=== PATIENT | male | born 1935 | race Caucasian/White ===

== ENCOUNTER 2017-05-16 11:29 | Day surgery (SDC) | payer MEDICARE ==
[2017-05-16] MEDS ORDERED: Morphine INJ* 10 MG/ML 1 ML CARPUJECT IV ONE (13:36)
[2017-05-16] MEDS ORDERED: Ondansetron ODT TAB* 4 MG PO ONE (13:36)
[2017-05-16] MEDS ORDERED: NS 0.9% 1000 ML* 1,000 ML IV ONE (13:45)
[2017-05-16 14:21] LABS: Urine Bacteria Absent (Absent); Urine Bilirubin Negative (Negative); Urine Glucose Negative (Negative); Urine Nitrite Negative (Negative)
[2017-05-16] MEDS ORDERED: cefTRIAXone VIAL(*) 1,000 MG in NS 0.9% 50 ML* 50 ML IVPB ONE (14:27)
[2017-05-16 14:28] LABS: Hematocrit 45 % (42-52); Mean Corpuscular HGB Conc 34 g/dl (31-36); Mean Corpuscular Hemoglobin 30 pg (27-31); Mean Corpuscular Volume 89 fL (80-94); Mean Platelet Volume 10 um3 (7.4-10.4); Red Blood Count 4.98 10^6/ul (4.0-5.4); Red Cell Distribution Width 14 % (10.5-15); White Blood Count 11.6 10^3/ul (3.5-10.8)
[2017-05-16] MEDS ORDERED: Morphine INJ* 4 MG/ML 1 ML CARPUJECT IV ONE (14:33)
[2017-05-16 14:38] LABS: ALT 16 U/L (7-52); AST 18 U/L (13-39); Albumin 4.1 g/dL (3.2-5.2); Alkaline Phosphatase 73 U/L (34-104); Anion Gap 8 mmol/L (2-11); BUN/Creatinine Ratio 15.2 (8-20); Blood Urea Nitrogen 17 mg/dL (6-24); C Reactive Protein 17.25 mg/L (< 5.00); CO2 Carbon Dioxide 28 mmol/L (22-32); Calcium 9.5 mg/dL (8.6-10.3); Chloride 100 mmol/L (101-111); EGFR African American 80.5 (>60); EGFR Non-African American 62.6 (>60); Globulin 3.8 g/dL (2-4); Glucose 103 mg/dL (70-100); Lipase < 10 U/L (11.0-82.0); Potassium 3.2 mmol/L (3.5-5.0); Sodium 136 mmol/L (133-145); Total Protein 7.9 g/dL (6.4-8.9)
[2017-05-16] MEDS ORDERED: Potassium Chlor TAB* 20 MEQ TAB.ER PO ONE (14:46)
[2017-05-16] MEDS ORDERED: cefTRIAXone(*) 1 GM ADVAN ONE (14:57)
--- NOTE | 2017-05-16 15:17 | RAD ---
INDICATION: Left flank abdominal pain. COMPARISON: There are no prior studies available for comparison. TECHNIQUE: A CT scan of the abdomen and pelvis was performed without intravenous or oral contrast. Contiguous axial sections were obtained from the lung bases through the symphysis pubis. Images were reconstructed in the coronal and sagittal planes. FINDINGS: There is mild dependent atelectasis in the left lower lobe. No pleural effusion is present. The liver and spleen are normal in size. No significant focal abnormality seen on this noncontrast study. The patient is status post cholecystectomy. The pancreas appears to be within normal limits. The adrenal glands are normal in size. There are multiple right renal cysts. There is cortical thinning and scarring in the lower pole of the left kidney. There are multiple bilateral renal calculi measuring up to 8 mm in size. 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 There is dilatation of the renal calyces and pelvis of the upper pole collecting system to the level of a 6 x 3 mm calculus causing moderate hydronephrosis. No bladder calculi are seen. The prostate gland is mildly enlarged measuring 5.1 cm in transverse dimension. The abdominal aorta is diffusely ectatic with moderate to severe calcific plaque present. No significant enlarged retroperitoneal lymph nodes are seen. The stomach, small and large bowel appear nondistended. The appendix is not visualized. There is moderate descending and sigmoid diverticulosis without evidence for diverticulitis or colitis. No free intraperitoneal air or fluid is seen. No significant focal osseous abnormality is seen. 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 THERE IS A 6 MM CALCULUS PRESENT AT THE URETEROPELVIC JUNCTION OF THE UPPER POLE COLLECTING SYSTEM CAUSING MODERATE HYDRONEPHROSIS. THERE ARE MULTIPLE ADDITIONAL BILATERAL RENAL CALCULI.
[2017-05-16] MEDS ORDERED: HYDROmorphone INJ* 1 MG/ML CARPUJECT SYRINGE IV SLOW PU ONE (15:28)
[2017-05-16] MEDS ORDERED: Morphine INJ* 4 MG/ML 1 ML CARPUJECT IV PRN (17:07)
[2017-05-16] MEDS ORDERED: Ondansetron INJ* 2 MG/ML VIAL IV PRN ×2 (17:07→19:17)
[2017-05-16] MEDS ORDERED: Acetaminophen TAB* 325 MG PO PRN (17:09)
[2017-05-16] MEDS ORDERED: Baclofen TAB* 10 MG PO PRN ×2 (17:09→17:11)
[2017-05-16] MEDS ORDERED: Butalb/Acetamin/Caff TAB* 1 TAB PO PRN (17:10)
[2017-05-16] MEDS ORDERED: traMADol TAB* 50 MG PO PRN (17:11)
[2017-05-16] MEDS ORDERED: Midazolam* 1 MG/ML 5 ML VIAL (5 MG) ONE (18:06)
[2017-05-16] MEDS ORDERED: Lidocaine 2% PF * 5 ML VIAL ONE (18:06)
[2017-05-16] MEDS ORDERED: Propofol* 10 MG/ML 20 ML BTL IV PUSH ONE (18:06)
[2017-05-16] MEDS ORDERED: Ondansetron INJ* 2 MG/ML VIAL ONE (18:06)
[2017-05-16] MEDS ORDERED: Dexamethasone IV* 4 MG/ML 1 ML (4 MG) ONE (18:06)
[2017-05-16] MEDS ORDERED: fentaNYL* 50 MCG/ML 2 ML VIAL (100 MCG VIAL) ONE (18:06)
[2017-05-16] MEDS ORDERED: cefTRIAXone(*) 2 GM ADDV.VIAL IVPB ONE (18:20)
[2017-05-16] MEDS ORDERED: Iohexol 180 (CONTRAST) 10 ML SDV IV ONE ×2 (18:49→18:52)
[2017-05-16] MEDS ORDERED: fentaNYL* 50 MCG/ML 2 ML VIAL (100 MCG VIAL) IV PRN (19:17)
--- NOTE | 2017-05-16 20:04 | ED ---
Rigoberto Denton Angela, scribed for Benton Gómez MD on 05/16/17 at 1339 . Back Pain - HPI Summary HPI Summary: This pt is a 82 y/o male presenting to [facility] c/o left flank pain since 0100 today. Pt notes that he has a PMHx of kidney stones. Pt denies fever. He states he is able to take morphine for the pain. Pt is from [place] and is currently visiting [place]. HPI is limited due to level 5 caveat - pt is in pain. - History of Current Complaint Chief Complaint: EDFlankPain Stated Complaint: LT FLANK PAIN Time Seen by Provider: 05/16/17 13:18 Hx Obtained From: Patient Onset/Duration: Lasting Hours Onset/Duration: Started Hours Ago Timing: Lasting Hours Back Pain Location: Is Discrete @ - left flank Pain Intensity: 8 Associated Signs And Symptoms: Positive: Flank Pain - left sided. Negative: Fever - Allergies/Home Medications Allergies/Adverse Reactions: Allergies Allergy/AdvReac Type Severity Reaction Status Date / Time Aspirin Allergy Severe Anaphylatic Verified 05/16/17 11:37 Shock Hydroxyzine Allergy Severe Hallucinati Verified 05/16/17 11:37 ons NSAIDs Allergy Severe Anaphylatic Verified 05/16/17 11:37 Shock Home Medications: Home Medications Baclofen TAB* [Lioresal TAB*] 5 mg PO TID PRN 05/16/17 [History Confirmed ] Dicyclomine HCl [Bentyl] 20 mg PO TID 05/16/17 [History Confirmed 05/16/17] Hydrochlorothiazide TAB* [Hydrodiuril TAB*] 25 mg PO DAILY 05/16/17 [History Confirmed 05/16/17] Omeprazole CAP* [Prilosec CAP* 20 MG] 40 mg PO QAM 05/16/17 [History Confirmed 05/16/17] Pramipexole TAB* [Mirapex TAB*] 0.25 mg PO QID 05/16/17 [History Confirmed 05/16] Propranolol TAB* [Inderal TAB*] 30 mg PO BID 05/16/17 [History Confirmed ] Propranolol TAB* [Inderal TAB*] 40 mg PO BEDTIME 05/16/17 [History Confirmed 01/25] Terazosin CAP* [Hytrin CAP*] 10 mg PO BEDTIME 05/16/17 [History Confirmed ] Tolterodine LA (NF) [Detrol LA (NF)] 2 mg PO DAILY 05/16/17 [History Confirmed 05/16/17] Verapamil TAB* [Calan TAB*] 120 mg PO BID 05/16/17 [History Confirmed 05/16/17] traMADol TAB* [Ultram*] 25 mg PO TID PRN 05/16/17 [History Confirmed 05/16/17] PMH/Surg Hx/FS Hx/Imm Hx Endocrine/Hematology History: Denies: Hx Diabetes Cardiovascular History: Denies: Hx Hypertension History: Reports: Hx Kidney Stones Infectious Disease History: No Infectious Disease History: Denies: Traveled Outside the [place] in Last 30 Days - Family History Known Family History: Negative: Cardiac Disease, Hypertension, Diabetes - Social History Alcohol Use: None Hx Substance Use: No Substance Use Type: Reports: None Hx Tobacco Use: No Smoking Status (MU): Never Smoked Tobacco Review of Systems Negative: Fever, Chills Positive: flank pain - left side All Other Systems Reviewed And Are Negative: No - Comments Additional Review of Systems Comments: ROS is limited due to level 5 caveat - pt is in pain Physical Exam Triage Information Reviewed: Yes Vital Signs On Initial Exam: Initial Vitals Temp Pulse Resp BP Pulse Ox 97.4 F 61 16 113/55 96 05/16/17 11:31 05/16/17 11:31 05/16/17 11:31 05/16/17 11:31 05/16/17 11:31 Vital Signs Reviewed: Yes Appearance: Positive: Well-Appearing, Pain Distress Head/Face: Positive: Normal Head/Face Inspection Eyes: Positive: EOMI ENT: Positive: Normal ENT inspection Neck: Positive: Nontender Respiratory/Lung Sounds: Positive: Clear to Auscultation, Breath Sounds Present Cardiovascular: Positive: RRR. Negative: Murmur Abdomen Description: Positive: CVA Tenderness (L). Negative: Distended Musculoskeletal: Positive: Strength/ROM Intact Neurological: Positive: Sensory/Motor Intact, Alert, Oriented to Person Place, Time, CN Intact II-III Psychiatric: Positive: Normal Diagnostics - Vital Signs Vital Signs Temp Pulse Resp BP Pulse Ox 05/16/17 11:31 97.4 F 61 16 113/55 96 - Laboratory Lab Results: Lab Results 05/16/17 05/16/17 05/16/17 Range/Units 13:57 14:15 14:15 WBC 11.6 H (3.5-10.8) 10^3/ul RBC 4.98 (4.0-5.4) 10^6/ul Hgb 15.0 (14.0-18.0) g/dl Hct 45 (42-52) % MCV 89 (80-94) fL MCH 30 (27-31) pg MCHC 34 (31-36) g/dl RDW 14 (10.5-15) % Plt Count 175 (150-450) 10^3/ul MPV 10 (7.4-10.4) um3 Neut % (Auto) 71.9 (38-83) % Lymph % (Auto) 14.9 L (25-47) % [place] % (Auto) 8.5 (1-9) % Eos % (Auto) 3.7 (0-6) % Baso % (Auto) 1.0 (0-2) % Absolute Neuts (auto) 8.4 H (1.5-7.7) 10^3/ul Absolute Lymphs (auto) 1.7 (1.0-4.8) 10^3/ul Absolute Monos (auto) 1.0 H (0-0.8) 10^3/ul Absolute Eos (auto) 0.4 (0-0.6) 10^3/ul Absolute Basos (auto) 0.1 (0-0.2) 10^3/ul Absolute Nucleated RBC 0 10^3/ul Nucleated RBC % 0 Sodium 136 (133-145) mmol/L Potassium 3.2 L (3.5-5.0) mmol/L Chloride 100 L (101-111) mmol/L Carbon Dioxide 28 (22-32) mmol/L Anion Gap 8 (2-11) mmol/L BUN 17 (6-24) mg/dL Creatinine 1.12 (0.67-1.17) mg/dL Est GFR ( Amer) 80.5 (>60) Est GFR (Non-Af Amer) 62.6 (>60) BUN/Creatinine Ratio 15.2 (8-20) Glucose 103 H (70-100) mg/dL Lactic Acid (0.5-2.0) mmol/L Calcium 9.5 (8.6-10.3) mg/dL Total Bilirubin 0.70 (0.2-1.0) mg/dL AST 18 (13-39) U/L ALT 16 (7-52) U/L Alkaline Phosphatase 73 (34-104) U/L C-Reactive Protein 17.25 H (< 5.00) mg/L Total Protein 7.9 (6.4-8.9) g/dL Albumin 4.1 (3.2-5.2) g/dL Globulin 3.8 (2-4) g/dL Albumin/Globulin Ratio 1.1 (1-3) Lipase < 10 L (11.0-82.0) U/L Urine Color Yellow Urine Appearance Cloudy Urine pH 5.0 (5-9) Ur Specific [place] 1.023 (1.010-1.030) Urine Protein 1+(30 mg/dl) H (Negative) Urine Ketones Negative (Negative) Urine Blood Negative (Negative) Urine Nitrate Negative (Negative) Urine Bilirubin Negative (Negative) Urine Urobilinogen Negative (Negative) Ur Leukocyte Esterase 2+ H (Negative) Urine WBC (Auto) 3+(>20/hpf) H (Absent) Urine RBC (Auto) 2+(6-10/hpf) H (Absent) Urine Bacteria Absent (Absent) Urine Glucose Negative (Negative) Urine Ascorbic Acid * H (Negative) 05/16/17 Range/Units 14:15 WBC (3.5-10.8) 10^3/ul RBC (4.0-5.4) 10^6/ul Hgb (14.0-18.0) g/dl Hct (42-52) % MCV (80-94) fL MCH (27-31) pg MCHC (31-36) g/dl RDW (10.5-15) % Plt Count (150-450) 10^3/ul MPV (7.4-10.4) um3 Neut % (Auto) (38-83) % Lymph % (Auto) (25-47) % [place] % (Auto) (1-9) % Eos % (Auto) (0-6) % Baso % (Auto) (0-2) % Absolute Neuts (auto) (1.5-7.7) 10^3/ul Absolute Lymphs (auto) (1.0-4.8) 10^3/ul Absolute Monos (auto) (0-0.8) 10^3/ul Absolute Eos (auto) (0-0.6) 10^3/ul Absolute Basos (auto) (0-0.2) 10^3/ul Absolute Nucleated RBC 10^3/ul Nucleated RBC % Sodium (133-145) mmol/L Potassium (3.5-5.0) mmol/L Chloride (101-111) mmol/L Carbon Dioxide (22-32) mmol/L Anion Gap (2-11) mmol/L BUN (6-24) mg/dL Creatinine (0.67-1.17) mg/dL Est GFR ( Amer) (>60) Est GFR (Non-Af Amer) (>60) BUN/Creatinine Ratio (8-20) Glucose (70-100) mg/dL Lactic Acid 1.2 (0.5-2.0) mmol/L Calcium (8.6-10.3) mg/dL Total Bilirubin (0.2-1.0) mg/dL AST (13-39) U/L ALT (7-52) U/L Alkaline Phosphatase (34-104) U/L C-Reactive Protein (< 5.00) mg/L Total Protein (6.4-8.9) g/dL Albumin (3.2-5.2) g/dL Globulin (2-4) g/dL Albumin/Globulin Ratio (1-3) Lipase (11.0-82.0) U/L Urine Color Urine Appearance Urine pH (5-9) Ur Specific [place] (1.010-1.030) Urine Protein (Negative) Urine Ketones (Negative) Urine Blood (Negative) Urine Nitrate (Negative) Urine Bilirubin (Negative) Urine Urobilinogen (Negative) Ur Leukocyte Esterase (Negative) Urine WBC (Auto) (Absent) Urine RBC (Auto) (Absent) Urine Bacteria (Absent) Urine Glucose (Negative) Urine Ascorbic Acid (Negative) Result Diagrams: 05/16/17 14:15 05/16/17 14:15 Lab Statement: Any lab studies that have been ordered have been reviewed, and results considered in the medical decision making process. 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 There is a 6 mm calculus present at the ureteropelvic junction of the upper pole collecting system causing moderate hydronephrosis. There are multiple additional bilateral renal calculi. ED physician has reviewed this radiology report and agrees. CT Interpretation Completed By: Radiologist Back Pain Course/Dx - Course Assessment/Plan: Pt is a 82 y/o male presents with severe left flank pain since 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 There is a 6 mm calculus present at the ureteropelvic junction of the upper pole collecting system causing moderate hydronephrosis. There are multiple additional bilateral renal calculi. Pt aki be admitted to the OR. - Diagnoses Provider Diagnoses: Pyelonephritis, Renal stone, Hydronephrosis Discharge - Discharge Plan Condition: Fair Disposition: ADMITTED TO [facility] The documentation as recorded by the Rigoberto conrad Angela accurately reflects the service I personally performed and the decisions made by , Benton Gómez MD.
--- NOTE | 2017-05-16 20:17 | RAD ---
CPT II Codes: 6045F INDICATION: Renal stones TECHNIQUE: Intraoperative fluoroscopy was provided during retrograde pyelogram and left ureteral stent placement. FINDINGS: 4 spot films depict retrograde pyelography with anatomic deployment of a ureteral stent. The final image on record of the proximal loop of the level J stent shows a loop to be mal deployed in a lower renal calyx. The lower loop is appropriately formed overlying the urinary bladder. Fluoroscopy time: 14 seconds IMPRESSION: As above.
[2017-05-16 20:20] VITALS: BP 158/75
[2017-05-16] MEDS ORDERED: Propranolol TAB* 10 MG PO SCH (21:00)
[2017-05-16] MEDS ORDERED: Pramipexole TAB* 0.125 MG PO SCH (21:00)
[2017-05-16] MEDS ORDERED: Terazosin CAP* 5 MG PO SCH (21:00)
[2017-05-16] MEDS ORDERED: DICYCLOMINE HCL 20 MG PO SCH (21:00)
[2017-05-16] MEDS ORDERED: Verapamil TAB* 120 MG PO SCH (21:00)
--- NOTE | 2017-05-16 21:16 | HP ---
HOSPITAL MEDICINE HISTORY AND PHYSICAL: DATE OF ADMISSION: 05/16/17 PRIMARY CARE PHYSICIAN: None. ATTENDING PHYSICIAN: Silverio Rodriguez MD * (dictation provided by Deisy Mccabe NP) CHIEF COMPLAINT: Left flank pain. HISTORY OF PRESENT ILLNESS: Mr. Mariscal is an 82-year-old male with a past medical history of hypertension, restless leg, and previous kidney stones, who presents to the hospital today with concern for the sudden onset of left-sided flank pain. Mr. Mariscal states he has been in his normal state of health. He recently drove 7 hours from his home in [place] here to visit his daughter who lives in [place]. At 1 a.m. this morning, he had sudden onset of pain to left flank, this was entirely consistent with previous episodes of kidney stones. He had no fever. He had no chills. He had no nausea. He had no vomiting. In the emergency room, Mr. Mariscal had a CT of the abdomen and pelvis, which showed a left renal calculus at 6 mm. He had no fever. Vitals were stable and no leukocytosis. This was reviewed with Dr. Castle and plans were made for the patient to likely be taken to the OR [facility] for lithotripsy and stent placement. PAST MEDICAL HISTORY: 1. The patient reports intermittent "head pains," They were quite severe without a clear diagnosis. 2. Psoriatic arthritis. 3. History of cholecystectomy in 2013, complications of umbilical hernia. 4. Hypertension. 5. Restless legs. 6. History of thymoma in 1991. 7. Appendectomy. 8. Rotator cuff surgery on the right. 9. History of cataract surgery. 10. History of kidney stones. MEDICATIONS: 1. Otezla daily as directed. 2. Baclofen 5 mg p.o. t.i.d. p.r.n. 3. Hydrochlorothiazide 25 mg p.o. daily. 4. Propranolol 30 mg p.o. b.i.d. and 40 mg at bedtime. 5. Detrol LA 2 mg p.o. daily. 6. Dicyclomine 20 mg p.o. t.i.d. 7. Omeprazole 40 mg p.o. q.a.m. 8. Paxil 0.25 mg p.o. q.i.d. 9. Terazosin 10 mg p.o. at bedtime. 10. Verapamil 120 mg p.o. b.i.d. 11. Tramadol 25 mg p.o. t.i.d. ALLERGIES: ASPIRIN, HYDROXYZINE, NSAIDS. FAMILY HISTORY: The patient reports his mother related to stroke and also had heart issues at age 92. Dad related to cancer at 51. SOCIAL HISTORY: The patient is a former smoker. He quit in 1991. He drinks alcohol very rarely. No report of drug use. He lives with his , his healthcare proxy. REVIEW OF SYSTEMS: A 14-point review of systems was completed with Mr. Mariscal and all those not mentioned above were negative except for the fact the patient did mention he has a chronic cough for which he takes benzonatate. PHYSICAL EXAMINATION GENERAL: Mr. Mariscal is sitting in bed. He is in no acute distress. VITAL SIGNS: Temperature 97.4, heart rate 70, respiratory rate 19, O2 saturation 100% on room air, blood pressure 156/69. LUNGS: Clear to auscultation bilaterally with no accessory muscle use and good aeration. HEART: S1, S2. No murmur, rub, or gallop and regular. ABDOMEN: Soft, nontender with bowel sounds positive x4. NEURO: He is alert. He is oriented x3. He moves all extremities equally. There is no facial asymmetry or focal weakness. Extraocular movements are intact. EXTREMITIES: No cyanosis or edema. SKIN: Intact. LABORATORY DATA/DIAGNOSTIC STUDIES: WBC 11.6, hemoglobin 15.0, hematocrit 45, platelet count 175. Sodium 136, potassium 3.2, chloride 100, serum bicarbonate 28, BUN 17, creatinine 1.12, glucose 103, lactic acid 1.2. CRP 17.25. Urine shows 2+ leuk esterase. No bacteria. No nitrate. CT abdomen and pelvis as read as follows. "The left renal collecting system is at least partially duplicated. There is a 6-mm calculus present at the ureteropelvic junction of the upper pole collecting system causing moderate hydronephrosis. There are multiple additional bilateral renal calculi". ASSESSMENT: Mr. Mraiscal is an 82-year-old male with past medical history of kidney stones as well as hypertension, psoriatic arthritis, and chronic headaches who presents to the hospital today with concern for left flank pain, found to have nephrolithiasis with hydronephrosis. Our plans are for observation in the hospital for the followin. Nephrolithiasis with hydronephrosis: The patient has been taken to the OR by Dr. Castle at this time, any further treatment will be directed per him. The patient will be observed overnight. 2. History of headaches. The patient states he takes Fioricet and baclofen for intermittent severe headaches and those have been ordered. 3. Restless legs. Continue pramipexole. 4. Hypertension. Continue verapamil, plan to hold hydrochlorothiazide during this acute episode of kidney stones. 5. DVT prophylaxis with heparin subcu. 6. Disposition to surgical floor. TIME SPENT: Approximately 60 minutes was spent on the admission of this patient , more than half the time spent with the patient at the bedside reviewing the events leading up to this hospitalization, performing the physical examination, and reviewing my plan of care. DEISY MCCABE NP [id number]/[facility] #: [id number] ROSANNA
[2017-05-16] MEDS ORDERED: Heparin VIAL(*) 5000 UNITS/ML VIAL (FIVE THOUSAND) SUBCUT SCH (22:00)
[2017-05-17] MEDS ORDERED: Omeprazole CAP* 20 MG PO SCH (09:00)
--- NOTE | 2017-05-17 12:55 | OP ---
CC: Dr. Nydia Traylor, [facility], [address], [place], [place] [address] OPERATIVE REPORT: DATE OF OPERATION: 05/16/17 DATE OF : 33 SURGEON: Jj Castle MD ANESTHESIOLOGIST: Marco A Garcia MD ANESTHESIA: General. PRE-OP DIAGNOSES: 1. Complete duplication of left kidney. 2. Left renal calculi. 3. 7-mm obstructing calculus at the ureteropelvic junction of upper pole moiety of left kidney. 4. Left Renal colic due to above. POST-OP DIAGNOSES: 1. Complete duplication of left kidney. 2. Left renal calculi. 3. 7-mm obstructing calculus at the ureteropelvic junction of upper pole moiety of left kidney. 4. Renal colic due to above. OPERATIVE PROCEDURE: 1. Cystoscopy. 2. Retrograde pyelographies of both upper & lower moieties of left kidney. 3. Placement of left ureteral stent in upper pole moiety. INDICATIONS: Mr. Mariscal is an 82-year-old white male, who is visiting his family in [place]. He is from [place] and has his medical care at the [facility] in [place] in [place]. The patient is known to have left renal calculi and complete duplication of his left kidney. He had required previous stents placement for obstructing left renal calculi. He presented to the emergency room at [facility] with symptoms of left renal colic. Noncontrast CT of the abdomen and pelvis showed duplicated Lt kidney, and a 6- to 7-mm calculus at the ureteropelvic junction of the upper pole moiety of the left kidney. Because of the severity of the pain and the size of the stone, the patient is taken to the operating room on an urgent basis for Lt ureteral stent placement. PATHOLOGY AT CYSTOSCOPY: The penile and bulbar urethrae looked normal. The prostatic urethra measured about 3 cm in length and there was a significant degree of obstruction by enlargement of the lateral lobes and the median lobe of the prostate. Examination of the bladder showed moderate diffuse trabeculations. There were no suspicious bladder lesions seen. There was a patulous left ureteral orifice that seemed to be refluxing. Another ureteral orifice was noted medial to the previously described orifice. Retrograde pyelography in the lateral patulous orifice showed a dilated lower pole collecting system. Retrograde through the medial orifice showed an obstructed system with a radio-opaque calculus at the ureteropelvic junction. There was hydronephrotic drip after placement of the ureteral catheter in the upper pole moiety. DESCRIPTION OF PROCEDURE: After successful general anesthesia, the patient was placed in the lithotomy position and was prepped and draped for cystoscopy. Cystoscopy was performed. The findings in the prostatic urethra and in the bladder were noted. A flexible tip guidewire was then placed in the lateral patulous left ureteral orifice. Retrograde pyelography was performed demonstrating the above findings and showing that the radiopaque calculus is not located within that ureter. The medial left ureteral orifice was then identified. A flexible tip guidewire was introduced and retrograde pyelography was performed demonstrating the obstructing calculus and the dilated collecting system. A size 6-[place] stent was then placed with the proximal end coiled in the left kidney and the distal end coiling inside the bladder. There was prompt drainage of contrast from the kidney. The cystoscope was then removed. A size 16-[place] Dom[place] catheter was past inside the bladder and the balloon inflated with 10 cc of water. The patient tolerated the procedure well and left the operating room in good condition. The plan is to observe the patient for possible infection. He will be discharged home on Bactrim. I instructed the patient and his to seek medical care with the urology service at the [facility] [place] [facility] in [place]. He is provided with a CD of his x-rays and with intraoperative pictures. I am forwarding this dictation to Dr. Nydia Traylor, his primary care physician, at the [facility] for referral to the urology service. [id number]/[facility] #: [id number] ROSANNA
--- NOTE | 2017-05-19 05:33 | DS ---
HOSPITAL MEDICINE DISCHARGE SUMMARY: DATE OF ADMISSION: 05/16/17 DATE OF DISCHARGE: 05/16/17 PRIMARY CARE PHYSICIAN: None. ATTENDING PHYSICIAN: Dr. Silverio Rodriguez * (dictation provided by Deisy Mccabe NP ). PRIMARY DIAGNOSIS: Nephrolithiasis with hydronephrosis, now status post stent placement. SECONDARY DIAGNOSES: 1. Psoriatic arthritis. 2. History of cholecystectomy in 2013 with umbilical hernia. 3. Hypertension. 4. Restless legs. 5. History of thymoma in 1991. 6. Appendectomy. 7. Rotator cuff surgery on the right. 8. History of cataract surgery. 9. History of kidney stones. MEDICATIONS: Antibiotics as prescribed per Dr. Castle. No other medication changes, they are: 1. Bactrim as directed by Dr. Castle. 2. Otezla daily as directed. 3. Baclofen 5 mg p.o. t.i.d. p.r.n. 4. Hydrochlorothiazide 25 mg p.o. daily. 5. Propranolol 30 mg p.o. b.i.d. and 40 mg at bedtime. 6. Detrol LA 2 mg p.o. daily. 7. Dicyclomine 20 mg p.o. t.i.d. 8. Omeprazole 40 mg p.o. q.a.m. 9. Paxil 0.25 mg p.o. q.i.d. 10. Terazosin 10 mg p.o. at bedtime. 11. Verapamil 120 mg p.o. b.i.d. 12. Tramadol 25 mg p.o. daily. HOSPITAL COURSE: Mr. Mariscal is an 82-year-old male with past medical history as mentioned above, who presented to the hospital on 05/16/17 with concern for left flank pain. Please see the dictated H and P from myself for complete details. In brief, the patient had flank pain with similar to past episodes of nephrolithiasis. He had a CT scan of the abdomen, which showed left renal calculus at 6 mm with some mild hydronephrosis. Mr. Mariscal went to the operating room with Dr. Castle who performed cystoscopy with retrograde pyelographies of both upper and lower moieties of left kidney with placement of left ureteral stent into the upper pole moiety. Dr. Castle recommended the patient to be discharged to home to complete a course of Bactrim. DISPOSITION: To home. DIET: Regular. ACTIVITY: As tolerated. FOLLOWUP PLANS: Please follow up with the patient's primary care physician, Dr. Nydia Traylor at the [facility] for referral to the urology service. TIME SPENT: Approximately 30 minutes were spent on the discharge of this patient, more than half the time was spent with the patient at the bedside reviewing the events leading up to this hospitalization, performing the physical examination, and reviewing my plan of care. DEISY MCCABE, [employer] [id number]/[facility] #: [id number] ROSANNA
== END 2017-05-16 20:32 | disposition home or self-care (01) ==
LOC: ED 11:29 → OR 17:27
PROVIDERS: ATTEND Urology
DX: N13.2 Hydronephrosis with renal and ureteral calculous obstruction (principal); R10.32 Left lower quadrant pain; L40.50 Arthropathic psoriasis, unspecified; I10 Essential (primary) hypertension; G25.81 Restless legs syndrome; Z79.899 Other long term (current) drug therapy; Q63.0 Accessory kidney
CPT/HCPCS: 36415; 74176; 74420; 80053; 81003; 81015; 83605; 83690; 85025; 86140; 87040; 87086; 96361; 96374; 99285; A9270-GY; C1876; J0696; J1100; J1170; J2250; J2270; J2405; J2704; J3010